=== PATIENT | female | born 1950 | race Two or more races ===

== ENCOUNTER 2024-06-15 16:43 | Emergency (ER) | payer OTHER ==
[~2024-06-15] VITALS: Ht 157.5 cm; Wt 71.7 kg
[2024-06-15] MEDS ORDERED: HYZAAR 100-12.1 EACH PO (16:48)
[2024-06-15] MEDS ORDERED: 0.9 % SODIUM CHLORIDE 1,000 ML IV ONE (17:15)
[2024-06-15] MEDS ORDERED: KETOROLAC TROMETHAMINE 15 MG VIAL IV ONE (17:15)
[2024-06-15 17:49] LABS: HEMATOCRIT 35.5 % (36.0-45.00); HEMOGLOBIN 12.1 g/dL (12.0-15.00); MEAN CELL VOLUME 86.6 fL (80.00-100.00); MEAN CORPUSCULAR HEMOGLOBIN 29.4 pg (27.00-32.0); PLATELET COUNT 205 K/uL (150-450); RED CELL DISTRIBUTION WIDTH 13.4 % (11.5-14.5)
[2024-06-15 18:19] LABS: URINE APPEARANCE Clear; URINE BILIRRUBIN Negative (NEGATIVE); URINE BLOOD Small; URINE COLOR Yellow; URINE GLUCOSE Negative (NEGATIVE); URINE KETONE 15 (NEGATIVE); URINE LEUKOCYTE Negative; URINE NITRATE Negative; URINE PROTEIN Negative (NEGATIVE); URINE UROBILINOGEN 0.2 E.U./dl
[2024-06-15 18:20] LABS: INR 1.14; PARTIAL THROMBOPLASTIN TIME 32.6 SECONDS (22.0-34.0); PROTHROMBIN TIME 12.3 SECONDS (9.0-11.5)
[2024-06-15 18:27] LABS: ALBUMIN 3.1 gm/dL (3.4-5.0); BILIRUBIN TOTAL 2.07 mg/dL (0.3-1.2); CALCIUM 9.3 mg/dL (8.5-10.1); CREATININE SERUM 0.59 mg/dL (0.55-1.02); GFR 100.19; GLOBULINA 3.3 G/DL (2.4-3.5); POTASSIUM 3.36 mEq/L (3.5-5.1); TOTAL PROTEIN 6.4 gm/dL (6.4-8.2)
[2024-06-15] MEDS ORDERED: PIPERACILLIN/TAZOBACTAM SODIUM 3.375 GM VIAL IV ONE (19:15)
[2024-06-15 19:27] LABS: URINE BACTERIA 0 uL (0.0-1933); URINE CAST 0.15 uL (0.0-1.40); URINE RBC 5.6 uL (0.0-20.8); URINE WBC 1.2 uL (0.0-23.2)
== END 2024-06-15 20:17 | disposition home or self-care (01) ==
LOC: ER 16:44
PROVIDERS: General Practice
DX: K57.32 Diverticulitis of large intestine without perforation or abscess without bleeding (principal); R10.13 Epigastric pain; I10 Essential (primary) hypertension
CPT/HCPCS: 36415; 74176; 96365; 96366; 99284; J1885; J2543; J7030